=== PATIENT | female | born 1960 | race Caucasian/White ===

== ENCOUNTER 2023-01-01 11:45 | Emergency (ER) | payer BC, SELFPAY ==
[2023-01-01 11:51] VITALS: BP 150/80; PULSE 71; RESP 17; TEMP 36.6; O2SAT 100
--- NOTE | 2023-01-01 12:08 | W.ED.GENAD ---
Discharge Plan Disposition Patient Disposition: Home Condition: Stable Discharge Details Clinical Impression: Fall, Blunt head trauma Primary Care Provider: Kirti,Local ED Provider: Alex Beach Home Meds and New Rx's Prescriptions: Continued Ozempic 2 mg/dose (8 mg/3 mL) pen injector 2 mg subcut QWEEK insulin glargine [Basaglar KwikPen U-100 Insulin] 100 unit/mL (3 mL) insulin pen 40 unit subcut BID metformin 1,000 mg tablet 1,000 mg PO DAILY atorvastatin 40 mg tablet 40 mg PO DAILY bisoprolol-hydrochlorothiazide 5-6.25 mg tablet 1 tab PO DAILY Xarelto 20 mg tablet 20 mg PO DAILY Rx Instructions: must administer with evening meal levothyroxine 50 mcg capsule 50 mcg PO DAILY meloxicam 15 mg Tablet 15 mg PO DAILY Discharge Instructions Additional Instructions: Your imaging did not show concerning findings trying to avoid bright lights until your headache is improved If not better within a week follow up with [facility] medical if you feel more ill, have severe worsening pain or difficulty breathing return to the emergency department Stand Alone Forms: Work Release Medical Decision Making 62 yo female who has afib on rivaroxaban, who fell back and hit her head last night and has worsening head pain since. She states she tripped causing her to fall back two steps and hit her head on a railing. She denies loc and preceding symptoms to the fall, states purely mechanical. She denies chest pain, lower back, extremity or abdominal pain. She does have left upper back pain. She is caox4 speaking clearly on arrival. She has no significant head hematomas. PERRL, eomi, no midline c spine/t/l spine tenderness, was seen at [facility] who did note neck tenderness. She is tender to the left upper back without visible or palpable deformities. Suspect concussion but will obtain ct head/c spine and cxr to further evaluate. pt stable, imaging negative, discussed with her likely concussion, advised to f/u with [facility] care since she has no pcp if symptoms continue, return precautions given Differential Diagnosis Differential Diagnosis: tbi, concussion Imaging Data Radiologic Study: Attestation: I personally reviewed and interpreted this imaging study as follows: Imaging: X-Ray Radiologist's impression: no acute findings Radiologic Study #2: Attestation: I personally reviewed and interpreted this imaging study as follows: Imaging: CT Scan Radiologist's impression: no acute findings HPI General Mode of arrival: ambulatory. Date/Time Provider Initiated Documentation: 01/01/23 11:47. Limitations to Documentation: no limitations. Information obtained by: patient. History of Present Illness 62 year old F presents to the emergency department with the chief complaint of fall, headache, described as moderate, Patient started experiencing this day(s) (1) and it has been constant. No relieving factors improve symptom(s), No exacerbating factors reported . Patient notes denies fever/chills. Patient did receive the following treatments prior to arrival, none Related Data Home Medications Medication Instructions Recorded Confirmed atorvastatin 40 mg tablet 40 mg PO DAILY 01/01/23 01/01/23 bisoprolol 5 1 tab PO DAILY 01/01/23 01/01/23 mg-hydrochlorothiazide 6.25 mg tablet insulin glargine 100 unit/mL (3 40 unit subcut BID 01/01/23 01/01/23 mL) subcutaneous pen (Basaglar KwikPen U-100 Insulin) levothyroxine 50 mcg capsule 50 mcg PO DAILY 01/01/23 01/01/23 meloxicam 15 mg tablet 15 mg PO DAILY 01/01/23 01/01/23 metformin 1,000 mg tablet 1,000 mg PO DAILY 01/01/23 01/01/23 rivaroxaban 20 mg tablet (Xarelto) 20 mg PO DAILY 01/01/23 01/01/23 semaglutide 2 mg/dose (8 mg/3 mL) 2 mg subcut QWEEK 01/01/23 01/01/23 subcutaneous pen injector (Ozempic) Allergies Allergy/AdvReac Type Severity Reaction Status Date / Time adhesive tape Allergy Verified 01/01/23 10:55 alcohol Allergy Verified 01/01/23 10:55 [From Mastisol Liquid Adhesive] codeine Allergy Verified 01/01/23 10:55 gum mastic Allergy Verified 01/01/23 10:55 [From Mastisol Liquid Adhesive] iodine Allergy Verified 01/01/23 10:55 methyl salicylate Allergy Verified 01/01/23 10:55 [From Mastisol Liquid Adhesive] shellfish derived Allergy Verified 01/01/23 10:55 storax Allergy Verified 01/01/23 10:55 [From Mastisol Liquid Adhesive] Sulfa (Sulfonamide Allergy Verified 01/01/23 10:55 Antibiotics) triazolam [From Halcion] Allergy Verified 01/01/23 10:55 General Stated Complaint: Headache SYLVIA: 3 Review of Systems All systems reviewed & are unremarkable except as noted in HPI and below Constitutional Constitutional: Denies chills, Denies fever(s) and Denies weakness Eyes Eyes: Denies loss of vision Cardiovascular Cardiovascular: Denies chest pain and Denies dyspnea Respiratory Respiratory: Denies cough and Denies dyspnea Gastrointestinal Gastrointestinal: Denies abdominal pain and Denies vomiting Musculoskeletal Musculoskeletal: Denies joint swelling Neurologic Neurologic: Denies loss of vision and Denies weakness PFSH All Active Problems (Updated 01/01/23 @ 13:50 by Alex Beach MD) Fall (Acute) Blunt head trauma (Acute) Social History Smoking/Tobacco Use Status: Never Smoking risk assessment performed?: Yes Alcohol Intake: never Drug use: Never Substance use type: does not use Do you feel safe at home: Yes Exam Const General: no acute distress Orientation: alert HENMT Head: normal to inspection Ears: external ears normal General nose exam: external nose normal Mouth: moist mucous membranes Eyes General: appearance normal, both eyes and all related structures Neck Neck: normal visual inspection Resp Effort & Inspection: normal respiratory effort and able to speak in complete sentences Cardio Rate: regular rate GI Palpation: nontender Back/Spine/Pelvis Back: no CVA tenderness Thoracic/Lumbar Spine: thoracic and lumbar spine normal to inspection, No thoracic spinal tenderness and No lumbar spinal tenderness Skin General skin exam: no rashes or lesions noted Neuro General: patient alert and patient oriented x3 Extrem General: normal to inspection Psych Mental Status: mental status grossly normal Course Vital Signs Vital signs: Vital Signs Temperature 36.6 C 01/01/23 11:51 Pulse 71 01/01/23 11:51 Respiratory Rate 17 01/01/23 11:51 Blood Pressure 150/80 H 01/01/23 11:51 Pulse Oximetry 100 01/01/23 11:51 Temperature 36.6 C 01/01/23 11:51 Temperature Source Temporal Artery Scan 01/01/23 11:51 Pulse 71 01/01/23 11:51 Respiratory Rate 17 01/01/23 11:51 Respiratory Effort Normal 01/01/23 11:54 Blood Pressure 150/80 H 01/01/23 11:51 Blood Pressure Position Sitting 01/01/23 11:51 Pulse Oximetry 100 01/01/23 11:51 Oxygen Delivery Method Room Air 01/01/23 11:51 Oxygen Flow Rate 0 01/01/23 11:51 Pain Level 7 01/01/23 11:51
--- NOTE | 2023-01-01 12:52 | DI.RAD_ITS ---
Exam(s) XR CHEST 2V PA LATERAL EXAM: XR CHEST 2V PA LATERAL CLINICAL HISTORY: left sided pain s/p fall TECHNIQUE: 2D digital imaging was performed. COMPARISON: No exams were available for comparison FINDINGS: HEART: Normal size. Aorta: Not dilated. PULMONARY VASCULATURE: Normal. LUNGS: Clear. PLEURAL SPACE: No pleural effusion or pneumothorax. BONE:Unremarkable for age. IMPRESSION: No acute abnormality. DATA REPOSITORY: RADIATION DOSE DELIVERED:
--- NOTE | 2023-01-01 12:54 | DI.CT_ITS ---
Exam(s) CT HEAD CERVICAL SPINE WO EXAM: CT HEAD CERVICAL SPINE WO CLINICAL HISTORY: pain s/p fall. TECHNIQUE: Imaging Protocol: Axial computed tomography images with coronal and sagittal reformatted images were created and reviewed COMPARISON: No exams were available for comparison FINDINGS: Head CT Ventricles and Extra axial spaces: Normal in size and morphology for the patient's age. Hemorrhage: None. Cerebral parenchyma: Normal. Midline shift: None. Brainstem/Cerebellum: Normal. Calvarium: Normal. Visualized Paranasal sinuses/Mastoids: Clear. Cervical Spine CT BONES: Vertebral body heights are maintained. Alignment is normal. There is no evidence of acute frac ture. Mild degenerative disc changes and facet degenerative changes are seen . SOFT TISSUES: No paraspinal hematoma. The airway appears intact. No pneumothorax is seen at the lung apices. IMPRESSION: Head CT: No acute abnormality. C-spine CT: Mild degenerative changes, no acute abnormality. RADIATION DOSE DELIVERED: 1,528.55mGy.cm Total DLP DATA REPOSITORY: All CT scans at this facility are submitted to the National Radiology Data Registry (NRDR) Dose Index Registry (DIR) with the [employer] ([employer]). RADIATION OPTIMIZATION: All CT scans at this facility use at least one of these dose optimization te chniques: automated exposure control; mA and/or kV adjustment per patient size (includes targeted exa ms where dose is matched to clinical indication); or iterative reconstruction.
[2023-01-01 14:02] VITALS: BP 133/74; PULSE 94; RESP 18; O2SAT 98
== END 2023-01-01 14:03 | disposition home or self-care (01) ==
PROVIDERS: Emergency Provider Emergency Medicine
DX: S09.90XA Unspecified injury of head, initial encounter (principal); X19.XXXA Contact with other heat and hot substances, initial encounter
CPT/HCPCS: 99284; 70450; 71046; 72125